=== PATIENT | male | born 1965 | race Caucasian/White ===

== ENCOUNTER 2017-11-22 00:18 | Emergency (ER) | payer OTHER ==
[2017-11-22 00:23] VITALS: BP 174/86; PULSE 74; TEMP 97.9; BMI 30.7
--- NOTE | 2017-11-22 01:12 | PDOC ---
Attending Attestation - Resident Resident Name: MeirAnuel tavarez - ED Attending Attestation I have performed the following: I have examined & evaluated the patient, The case was reviewed & discussed with the resident, I agree w/resident's findings & plan, Exceptions are as noted - HPI HPI: 11/22/17 01:08 52 yo male no pmhx here s/p trip and fall one week ago while traveling in [place]. had trip and fall, c/o right leg pain. was seen clinc there had xray found to have a fibula fx. was uncertain of the injury in his ankle. pt has had right lower extremity swelling. no f/c no cp no sob. no h/o pe or dvt. has been unable to weight bear due to pain. taking tramadol for the pain, min relief. 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 - Physicial Exam PE: 11/22/17 01:11 awake alert head atraumati lung clear bilaterally heart rrr no mrg. right ankle lateral calf ttp , ankle mild swelling. FROM , 2 + dp/ pt . bilat. mall tenderness. - Medical Decision Making 11/22/17 01:12 plan look at films here, only ap view of tib/ fib, anikle. will repeat films for more view r/o malleolar fx. pain control howardley splint and ortho fu.
--- NOTE | 2017-11-22 01:17 | PDOC ---
History of Present Illness <Alyssa Kemp - Last Filed: 11/22/17 05:10> - History of Present Illness Initial Comments: The patient is a 52M w/ no reported PMH who presents for evaluation of RLE fibula fx and ankle pain 8 days s/p mechanical fall x3. The patient reports being in [place], walking outside, when he tripped and fell to his right. He then attempted to stand twice and fell two subsequent times. He was seen in [place] where he has films obtained that showed the fibula fracture. He also states they told him he had a significant finding in his ankle but does not recall what. He just returned from [facility] and came straight to the hospital. He endorses RLE swelling which he states is worse today because of the time sitting on the flight. He has previously been elevating his leg. He states he has been unable to bear weight on his RLE but has been able to ambulate short distances with a crutch and has otherwise been using a wheelchair to get around. He denies fevers/chills, chest pain, shortness of breath, increased pain, or changes in sensation. His dressing was last changed 2 d. ago 11/22/17 01:10 <Anuel Maya - Last Filed: 11/22/17 06:48> - General Chief Complaint: Bone Injury Stated Complaint: PAIN/BROKEN ANKLE Time Seen by Provider: 11/22/17 00:51 Past History <Alyssa Kemp - Last Filed: 11/22/17 05:10> - Past Medical History COPD: No - Suicide/Smoking/Psychosocial Hx Smoking History: Never smoked <Anuel Maya - Last Filed: 11/22/17 06:48> - Past Medical History Allergies/Adverse Reactions: Allergies Allergy/AdvReac Type Severity Reaction Status Date / Time No Known Allergies Allergy Verified 11/22/17 00:23 Home Medications: Ambulatory Orders Oxycodone HCl/Acetaminophen [Percocet 5/325 -] 1 tab PO Q6H #16 tablet MDD 4 09/02 Review of Systems - Review of Systems Able to Perform ROS?: Yes Comments:: GENERAL/CONSTITUTIONAL: No fever or chills. No weakness HEAD, EYES, EARS, NOSE AND THROAT: No change in vision. No ear pain or discharge. No sore throat CARDIOVASCULAR: No chest pain or shortness of breath RESPIRATORY: No cough, wheezing, or hemoptysis GASTROINTESTINAL: No nausea, vomiting, diarrhea or constipation GENITOURINARY: No dysuria, frequency, or change in urination MUSCULOSKELETAL: per HPI SKIN: No rash NEUROLOGIC: No headache, vertigo, loss of consciousness, or change in strength/ sensation ENDOCRINE: No increased thirst. No abnormal weight change HEMATOLOGIC/LYMPHATIC: No anemia, easy bleeding, or history of blood clots ALLERGIC/IMMUNOLOGIC: No hives or skin allergy 11/22/17 01:18 Is the patient limited Panamanian proficient: No <Anuel Maya - Last Filed: 11/22/17 06:48> *Physical Exam - Vital Signs Last Vital Signs Temp Pulse Resp BP Pulse Ox 97.9 F 74 18 174/86 H 96 11/22/17 00:21 11/22/17 00:21 11/22/17 00:21 11/22/17 00:21 11/22/17 00:21 <Alyssa Kemp - Last Filed: 11/22/17 05:10> - Vital Signs Last Vital Signs Temp Pulse Resp BP Pulse Ox 97.9 F 74 18 174/86 H 96 11/22/17 00:21 11/22/17 00:21 11/22/17 00:21 11/22/17 00:21 11/22/17 00:21 - Physical Exam Comments: GENERAL: Awake, alert, and fully oriented, in no acute distress HEAD: No signs of trauma, normocephalic, atraumatic EYES: PERRL, EOMI, sclera anicteric, conjunctiva clear ENT: Hearing grossly normal, nares patent, oropharynx clear without exudates. Moist mucosa NECK: Normal ROM, supple LUNGS: No distress, speaks full sentences, clear to auscultation bilaterally HEART:Regular rate and rhythm, normal S1 and S2, no murmurs appreciated, peripheral pulses normal and equal bilaterally ABDOMEN: Soft, nontender, normoactive bowel sounds. No guarding, no rebound NEUROLOGICAL: Cranial nerves II through XII grossly intact. Normal speech, normal gait, no focal sensorimotor deficits SKIN: Warm, Dry, normal turgor, no rashes or lesions noted RLE: Inspection: Ankle swelling and mild erythema of medial malleolus. B/l malleolar TTP. No open wounds. Compartments soft and compressible, pain within proportion. TTP over lateral mid lower leg Sensation: SPLT DP, SP, Tib, Noel, Saph sensation to light touch intact Motor: 5/5 EHL, 5/5 FHL, 4/5 TA 2/2 pain, 4/5GS 2/2 pain, 5/5 Quad, 5/5 Ham Vascular: 2+ DP/PT, all toes BCR <2 sec LLE: Inspection: No erythema or ecchymosis. No tenderness, no obvious abnormalities, no open wounds. Compartments soft and compressible, pain within proportion, no pain to passive stretch Sensation: SPLT DP, SP, Tib, Noel, Saph sensation to light touch intact Motor: 5/5 EHL, 5/5 FHL, 5/5 TA, 5/5GS, 5/5 Quad, 5/5 Ham Vascular: 2+ DP/PT, all toes BCR <2 sec 11/22/17 01:18 <Anuel Maya - Last Filed: 11/22/17 06:48> ED Treatment Course - LABORATORY CBC & Chemistry Diagram: 11/22/17 04:02 11/22/17 04:02 - ADDITIONAL ORDERS Additional order review: Laboratory Results 11/22/17 11/22/17 04:02 04:02 PTT (Actin FS) 25.7 Sodium 138 Potassium 4.2 Chloride 102 Carbon Dioxide 30 Anion Gap 6 L BUN 28 H Creatinine 1.0 Creat Clearance w eGFR > 60 Random Glucose 99 Calcium 8.7 Total Bilirubin 0.6 AST 23 ALT 27 Alkaline Phosphatase 98 Total Protein 7.9 Albumin 3.8 11/22/17 04:02 RBC 4.00 MCV 91.8 MCHC 33.8 RDW 13.8 MPV 7.2 L Neutrophils % 67.2 Lymphocytes % 22.1 Monocytes % 9.0 Eosinophils % 1.3 Basophils % 0.4 - RADIOLOGY Radiology Studies Ordered: Category Date Time Status LOWER EXTREMITY CT W/O CONTR [CT] Stat CT Scan 11/22/17 02:38 Taken - Medications Given in the ED: ED Medications Discontinued Medications Generic Name Dose Route Start Last Admin Trade Name Freq PRN Reason Stop Dose Admin Oxycodone/Acetaminophen 1 combo 11/22/17 01:11 11/22/17 01:16 Percocet 5/325 - PO 11/22/17 01:12 1 combo ONCE ONE Administration <Alyssa Kemp - Last Filed: 11/22/17 05:10> - LABORATORY CBC & Chemistry Diagram: 11/22/17 04:02 11/22/17 04:02 - RADIOLOGY Radiology Studies Ordered: Category Date Time Status ANKLE & FOOT-RIGHT* [RAD] Stat Radiology 11/22/17 01:03 Ordered LEG TIB/FIB-RIGHT [RAD] Stat Radiology 11/22/17 01:03 Ordered <Anuel Maya - Last Filed: 11/22/17 06:48> Medical Decision Making - Medical Decision Making The patient is a 52M who presents for evaluation for R fibular fx and inability to bear weight s/p fall x3 8 days ago. R tib/fib, R foot/ankle XR CMP, CBC, coags Percocet 5 PO once for pain 11/22/17 02:[address] -CT sig for medial mal fx Will re-splint Plan for D/C w/ Ortho f/u Patient given discharge instructions, crutches and instructions, as well as return precautions -Return precautions included changes in sensation, increasing pain, increasing swelling, reduced ROM, or inability to move any portion of the RLE Plan was discussed with patient who is in agreement and verbalized understanding Dispo: Home 11/22/17 04:44 <Anuel Maya - Last Filed: 11/22/17 06:48> *DC/Admit/Observation/Transfer - Discharge Dispostion Decision to Admit order: No <Alyssa Kemp - Last Filed: 11/22/17 05:10> - Discharge Dispostion Decision to Admit order: No <Anuel Maya - Last Filed: 11/22/17 06:48> Diagnosis at time of Disposition: Fibula fracture Qualifiers: Encounter type: initial encounter Fibula location: shaft Fracture type: closed Fracture morphology: unspecified fracture morphology Laterality: right Qualified Code(s): S82.401A - Unspecified fracture of shaft of right fibula, initial encounter for closed fracture Medial malleolar fracture Qualifiers: Encounter type: initial encounter Fracture type: closed Fracture alignment: nondisplaced Laterality: right Qualified Code(s): S82.54XA - Nondisplaced fracture of medial malleolus of right tibia, initial encounter for closed fracture - Discharge Dispostion Disposition: HOME Condition at time of disposition: Stable - Prescriptions Prescriptions: Oxycodone HCl/Acetaminophen [Percocet 5/325 -] 1 tab PO Q6H #16 tablet MDD 4 - Referrals Referrals: Billy Vega MD [Staff Physician] - - Patient Instructions Printed Discharge Instructions: How to Use Crutches, How to Take Care of Your Cast, DI for Malleolar Fracture, Fibula Shaft Fracture
--- NOTE | 2017-11-22 02:37 | PDOC ---
*Physical Exam - Vital Signs Last Vital Signs Temp Pulse Resp BP Pulse Ox 97.9 F 74 18 174/86 H 96 11/22/17 00:21 11/22/17 00:21 11/22/17 00:21 11/22/17 00:21 11/22/17 00:21 ED Treatment Course - LABORATORY CBC & Chemistry Diagram: 11/22/17 04:02 11/22/17 04:02 - Medications Given in the ED: ED Medications Discontinued Medications Generic Name Dose Route Start Last Admin Trade Name Damaso PRN Reason Stop Dose Admin Oxycodone/Acetaminophen 1 combo 11/22/17 01:11 11/22/17 01:16 Percocet 5/325 - PO 11/22/17 01:12 1 combo ONCE ONE Administration Medical Decision Making - Medical Decision Making 11/22/17 02:36 Pt signed out to me; he has a trimalleolar fracture and we are awaiting ortho's input. 11/22/17 05:08 Patient Name: KVNG QUEVEDO THIS IS A PRELIMINARY REPORT FROM [facility] [employer] [facility] DATE OF SERVICE: 2017-11-22 02:50:01 IMAGES: [phone] EXAM: CT LOWER EXTREMITY WITHOUT CONTRAST Acute minimally displaced oblique fracture mid right fibula. Acute fracture medial malleolus of tibia, with distal fragment displaced sligthly inferiorly. 5 x 3 x 2 mm ossific density posterior to tibial plafond could represent a small avulsion fracture versus chronic soft tissue calcification. Small incidental bone island middle cuneiform. Small patellar osteophytes. Subcutaneous edema knee through midfoot. Individualized dose optimization techniques were used for this CT. THIS DOCUMENT HAS BEEN ELECTRONICALLY SIGNED 11/22/17 05:09 Pt will be asked to follow with Dr. Vega. *DC/Admit/Observation/Transfer Diagnosis at time of Disposition: Trimalleolar fracture - Discharge Dispostion Condition at time of disposition: Good - Referrals - Patient Instructions - Post Discharge Activity
[2017-11-22 04:13] LABS: BASO % 0.4 % (0-2.0); EOS % 1.3 % (0-4.5); HEMATOCRIT 36.7 % (35.4-49); HEMOGLOBIN 12.4 GM/dL (11.7-16.9); LYMPH % 22.1 % (8-40); MCH 31.1 pg (25.7-33.7); MCHC 33.8 g/dl (32.0-35.9); MEAN CELL VOLUME 91.8 fl (80-96); MEAN PLT VOLUME 7.2 fl (7.5-11.1); NEUT % 67.2 % (42.8-82.8); PLATELET COUNT 272 K/MM3 (134-434); RDW 13.8 % (11.9-15.9); WHITE BLOOD COUNT 8.7 K/mm3 (4.0-10.0)
[2017-11-22 04:36] LABS: ALBUMIN 3.8 g/dl (3.4-5.0); ALK PHOS 98 U/L (45-117); ANION GAP 6 MMOL/L (8-16); BILIRUBIN,TOTAL 0.6 mg/dL (0.2-1); BLOOD UREA NITROGEN 28 mg/dL (7-18); CALCIUM 8.7 mg/dL (8.5-10.1); CHLORIDE 102 mmol/L (98-107); CO2 30 mmol/L (21-32); GLUCOSE,RANDOM 99 mg/dL (74-106); POTASSIUM 4.2 mmol/L (3.5-5.1); SGOT/AST 23 U/L (15-37); SGPT/ALT 27 U/L (13-61); SODIUM 138 mmol/L (136-145); TOT PROT 7.9 g/dl (6.4-8.2)
[2017-11-22 04:41] LABS: INR 1.05 (0.83-1.09); PROTHROMBIN TIME (PATIENT) 12.4 SEC (9.7-13.0)
== END 2017-11-22 06:30 | disposition home or self-care (01) ==
LOC: JER 00:18
PROC: 2W3QX1Z Immobilization of Right Lower Leg using Splint (ICD-10-PCS; principal; 2017-11-22)
DX: S82.851A Displaced trimalleolar fracture of right lower leg, initial encounter for closed fracture (principal); W01.0XXA Fall on same level from slipping, tripping and stumbling without subsequent striking against object, initial encounter; Y93.89 Activity, other specified; Y92.89 Other specified places as the place of occurrence of the external cause; Y99.8 Other external cause status
CPT/HCPCS: 29515; 36415; 73590-TC-RT-FY; 73610-TC-RT-FY; 73630-TC-RT-FY; 73700-TC-RT; 80053; 85025; 85610; 85730; 99282-25

== ENCOUNTER 2020-04-27 05:53 | Day surgery (SDC) | payer OTHER ==
[2020-04-24 14:52] VITALS: BMI 33.3
[2020-04-27] MEDS ORDERED: BUPIVACAINE HCL/PF 0.25% (2.5MG/ML) 10 ML VIAL ONE (07:07)
[2020-04-27] MEDS ORDERED: PROPOFOL 20 ML ONE ×2 (07:20)
[2020-04-27] MEDS ORDERED: fentaNYL CITRATE 250 MCG/5 ML VIAL ONE (07:20)
[2020-04-27] MEDS ORDERED: SUCCINYLCHOLINE CHLORIDE 200 MG/10 ML SYRINGE ONE (07:21)
[2020-04-27] MEDS ORDERED: MIDAZOLAM HCL 2 MG/2 ML SINGLE DOSE VIAL ONE (07:21)
[2020-04-27] MEDS ORDERED: DEXAMETHASONE SOD PHOSPHATE 4 MG/1 ML VIAL ONE (07:38)
[2020-04-27] MEDS ORDERED: ceFAZolin SODIUM 1 GM VIAL ONE (07:38)
[2020-04-27] MEDS ORDERED: ONDANSETRON 4 MG/2 ML VIAL ONE ×2 (07:38→08:42)
[2020-04-27] MEDS ORDERED: KETOROLAC TROMETHAMINE 30 MG/1 ML VIAL ONE (07:43)
[2020-04-27] MEDS ORDERED: BUPIVACAINE HCL/PF 2.5 MG/ML - 30 ML VIAL IJ ONE (08:13)
[2020-04-27 09:25] VITALS: TEMP 97.8
[2020-04-27 09:49] VITALS: BP 123/77; PULSE 88
== END 2020-04-27 10:01 | disposition home or self-care (01) ==
LOC: FASU 05:53
PROVIDERS: ATTEND Orthopaedic Surgery Sports Medicine
PROC: 0SBD4ZZ Excision of Left Knee Joint, Percutaneous Endoscopic Approach (ICD-10-PCS; principal; 2020-04-27 07:50)
DX: S83.242A Other tear of medial meniscus, current injury, left knee, initial encounter (principal); M94.262 Chondromalacia, left knee; M65.862 Other synovitis and tenosynovitis, left lower leg; X58.XXXA Exposure to other specified factors, initial encounter; Y93.9 Activity, unspecified; Y92.9 Unspecified place or not applicable
CPT/HCPCS: 82962; 88304-TC; 94760